=== PATIENT | female | born 1975 | race Asian ===

== ENCOUNTER 2017-02-05 15:16 | Emergency (ER) | payer OTHER ==
[~2017-02-05] VITALS: Ht 160 cm; Wt 66.0 kg
[~2017-02-05 15:16] MED LIST: ACYC800T57 PO; BEN25 PO; CEPH-443 PO; FER325 PO; IBUP-1542 PO; LEVO175T2 PO; PEN500 PO; PREN-39 PO; TYL500 PO
[2017-02-05 15:25] VITALS: Ht 160 cm; Wt 66.0 kg
[2017-02-05] MEDS ORDERED: PSEU30TA38 PO (18:10)
[2017-02-05] MEDS ORDERED: FLUT9.9S NASAL (18:10)
[2017-02-05 18:28] VITALS: BP 105/68; PULSE 82; RESP 18; TEMP 98.2
--- NOTE | 2017-02-05 23:13 | ERD ---
DATE OF SERVICE: HISTORY OF PRESENT ILLNESS: The patient is a 41-year-old female complaining of a fever, sore throat . The patient has had a tactile fever for the last 2 days. She has taken Advil and Tylenol but has not taken any medication for the last 10 hours. She has no cough, has a mild runny nose. Has a mi ld headache. No vomiting. Has positive sick contacts. Her son has similar symptoms and has no dysu khoi, no abdominal pain, no chest pain, no shortness of breath. MEDICAL HISTORY: Hypothyroidism. ALLERGIES TO MEDICATIONS: DENIES. PAST SURGICAL HISTORY: . SOCIAL HISTORY: Denies. REVIEW OF SYSTEMS: A 12-point review of systems was done. Refer to HPI for positives, all other sy stems negative. PHYSICAL EXAMINATION VITAL SIGNS: Temperature is 98.1, pulse 84, blood pressure is 117/70, respiratory 18, O2 saturation 98% on room air. Pain intensity of 5/10. GENERAL: The patient is well-appearing, well-nourished, no acute distress. HEENT: Atraumatic. Conjunctivae are pink. Pupils equal, round, and reactive to light. There is no s cleral icterus. Tympanic membranes clear bilaterally. Oropharynx clear. No nystagmus or photophobia . NECK: C-spine is soft and supple. There is no meningismus. There is no cervical lymphadenopathy. No JVD. No bruits. No goiter. CHEST: Clear to auscultation bilaterally. There are no rales, wheezes or rhonchi. HEART: Regular rate and rhythm. No murmurs, clicks, rubs or gallops. No S3 or S4. ABDOMEN: Soft, nontender and nondistended. Good bowel sounds. No rebound or guarding. No gross golden tonitis. No gross organomegaly or masses. No Alva sign or McBurney point tenderness. SKIN: There is no apparent rash or petechia. The skin is warm and dry. DIAGNOSIS: Upper respiratory infection. MEDICAL DECISION MAKING: I have low suspicion for meningitis or sepsis, low suspicion for pneumonia , low suspicion for bacterial HEENT infection. The patient's symptoms are likely associated with vir al etiology. I have low suspicion for acute abdomen. DISCHARGE: The patient is discharged stable. Patient given prescription for Sudafed, Flonase and t old to follow up with primary care within 1 to 2 days for reevaluation. The patient was told if sym ptoms progress or worsen to return to the ER. All other questions answered at time of discharge. D ischarge summary given at the time of departure. Patient understood and complied with plan. Dictated By: MONSTER ROY/KENDALL Conf#: [id number] DID#: [id number]
== END 2017-02-05 18:28 | disposition home or self-care (01) ==
LOC: FTE 15:16
DX: J06.9 Acute upper respiratory infection, unspecified (principal); E03.9 Hypothyroidism, unspecified
CPT/HCPCS: 99283

== ENCOUNTER 2018-04-02 22:59 | Emergency (ER) | END 2018-04-03 03:55 | disposition home or self-care (01) ==